=== PATIENT | female | born 1955 | race Caucasian/White ===

== ENCOUNTER → 2017-04-03 | Day surgery (SDC) | payer BC ==
[2017-04-01 14:51] VITALS: BMI 27.8
[2017-04-03 12:58] VITALS: TEMP 97.8
[2017-04-03 14:06] VITALS: BP 129/65; PULSE 62
--- NOTE | 2017-04-06 16:55 | PATH ---
Surgical Pathology Report Patient Name: SADE ZHOU [facility]. Rec. #: [id number] /Age/Gender: 1955 (Age: 61) / F Account: [id number] Location: U-ENDOSCOPY Taken: 04/03/2017 Received: 04/03/2017 Reported: 04/06/2017 Physicians: Abhijeet Holt M.D. Specimen(s) Received A: BX DUODENUM B: BX PRE-PYLORIC ULCER ANTRUM C: BX PROXIMAL RIGHT COLON POLYP D: BX HEPATIC FLEXURE POLYP E: BX CECAL POLYP Clinical History Preoperative diagnosis: Epigastric pain, adenoma surveillance Postoperative diagnosis: Gastric ulcer, colon polyps, diverticulosis Final Diagnosis A. DUODENUM, SECOND PORTION AND BULB, BIOPSY: DUODENAL MUCOSA WITHOUT SIGNIFICANT PATHOLOGIC FINDINGS. B. STOMACH, ANTRUM, PREPYLORIC ULCER, BIOPSY: GASTRIC ANTRAL MUCOSA WITH MODERATE CHRONIC ACTIVE GASTRITIS. DIFF-QUIK SPECIAL STAIN IS POSITIVE FOR HELICOBACTER-LIKE ORGANISMS. C. COLON, RIGHT, POLYP, BIOPSY: TUBULAR ADENOMA. D. COLON, HEPATIC FLEXURE, POLYP, BIOPSY: TUBULAR ADENOMA. E. CECUM, POLYP, BIOPSY: TUBULAR ADENOMA. Electronically Signed Gabrielle Wise M.D. Gross Description A. Received in formalin, labeled "biopsy second portion of duodenum and bulb" are 3 gracia, irregular portions of soft tissue ranging from 0.4-0.7 cm. in greatest dimension. The specimens are submitted in toto in one cassette. B. Received in formalin, labeled "biopsy prepyloric ulcer and antrum" are 4 gracia, irregular portions of soft tissue ranging from 0.3-0.4 cm. in greatest dimension. The specimens are submitted in toto in one cassette. C. Received in formalin, labeled "biopsy proximal right colon polyp" are 2 gracia, irregular portions of soft tissue measuring 0.1 and 0.4 cm. in greatest dimension. The specimens are submitted in toto in one cassette. D. Received in formalin, labeled "hepatic flexure polyp" are 5 gracia, irregular portions of soft tissue ranging from 0.1-0.2 cm. in greatest dimension. The specimens are submitted in toto in one cassette. E. Received in formalin, labeled "biopsy cecal polyp" is a gracia, irregular portion of soft tissue measuring 0.5 cm. in greatest dimension. The specimen is submitted in toto in one cassette. 04/03/201704/03/2017
== END | disposition home or self-care (01) ==
LOC: JASU-ENDO 11:11
PROVIDERS: ATTEND Internal Medicine Gastroenterology
PROC: 0DBK8ZX Excision of Ascending Colon, Via Natural or Artificial Opening Endoscopic, Diagnostic (ICD-10-PCS; 2017-04-03)
PROC: 0DBH8ZX Excision of Cecum, Via Natural or Artificial Opening Endoscopic, Diagnostic (ICD-10-PCS; 2017-04-03)
PROC: 0DB98ZX Excision of Duodenum, Via Natural or Artificial Opening Endoscopic, Diagnostic (ICD-10-PCS; 2017-04-03)
PROC: 0DB68ZX Excision of Stomach, Via Natural or Artificial Opening Endoscopic, Diagnostic (ICD-10-PCS; 2017-04-03)
PROC: 0DBL8ZX Excision of Transverse Colon, Via Natural or Artificial Opening Endoscopic, Diagnostic (ICD-10-PCS; principal; 2017-04-03 11:30)
DX: Z86.010 Personal history of colon polyps (principal); K57.30 Diverticulosis of large intestine without perforation or abscess without bleeding; K64.8 Other hemorrhoids; D12.0 Benign neoplasm of cecum; D12.2 Benign neoplasm of ascending colon; D12.3 Benign neoplasm of transverse colon; K25.9 Gastric ulcer, unspecified as acute or chronic, without hemorrhage or perforation; K29.50 Unspecified chronic gastritis without bleeding; B96.81 Helicobacter pylori [H. pylori] as the cause of diseases classified elsewhere
CPT/HCPCS: 88305-TC; 88312-TC

== ENCOUNTER 2021-05-24 04:34 | Day surgery (SDC) | payer OTHER, BC ==
[2021-05-21 14:42] VITALS: BMI 29.0
[2021-05-24 09:28] VITALS: TEMP 97.8
[2021-05-24 10:33] VITALS: BP 116/55; PULSE 61
== END 2021-05-24 10:15 | disposition home or self-care (01) ==
LOC: JASU-ENDO 04:34
PROVIDERS: ATTEND Internal Medicine Gastroenterology
PROC: 0DBH8ZX Excision of Cecum, Via Natural or Artificial Opening Endoscopic, Diagnostic (ICD-10-PCS; 2021-05-24)
PROC: 0DBL8ZX Excision of Transverse Colon, Via Natural or Artificial Opening Endoscopic, Diagnostic (ICD-10-PCS; principal; 2021-05-24 09:00)
DX: Z12.11 Encounter for screening for malignant neoplasm of colon (principal); Z86.010 Personal history of colon polyps; D12.0 Benign neoplasm of cecum; D12.3 Benign neoplasm of transverse colon; K57.30 Diverticulosis of large intestine without perforation or abscess without bleeding
CPT/HCPCS: 88305-TC